=== PATIENT | female | born 1940 | race Caucasian/White ===

== ENCOUNTER 2020-08-01 07:46 | Outpatient (CLI) | payer MEDICARE, SELFPAY ==
--- NOTE | ~2020-08-01 | DEXA_ITS ---
Bone Density Report Name: Lynne Best Age: 80 Sex: Female Ethnicity: White Date of : 1940 Indication: osteopenia; height loss; history of glucocorticoids; hysterectomy; postmenopausal Referring Provider: Marlon Finch Study: Bone densitometry was performed. Exam Date: August 01, 2020 Accession number: [id number] Bone Density: Region BMD T-score Z-score Classification AP Spine (L1, L2, L3) 0.780 -2.2 0.5 Osteopenia Femoral Neck (Left) 0.697 -1.4 1.0 Osteopenia Total Hip (Left) 0.735 -1.7 0.5 Osteopenia Total Hip Bilateral Avg 0.738 -1.7 0.5 Osteopenia Femoral Neck (Right) 0.623 -2.0 0.4 Osteopenia Total Hip (Right) 0.739 -1.7 0.5 Osteopenia World Health Organization criteria for BMD impression classify patients as: Normal (T-score at or above -1.0), Osteopenia (T-score between -1.0 and -2.5), or Osteoporosis (T-score at or below -2.5). 10-year Fracture Risk(1): Major Osteoporotic Fracture 24% Hip Fracture 8.7% Reported Risk Factors: [place] (), Neck BMD=0.623, BMI=25.1, glucocorticoids (1) FRAX(R) Version 3.08. Fracture probability calculated for an untreated patient. Fracture probability may be lower if the patient has received treatment. Previous Exams: Region Exam Age BMD T-score BMD Change BMD Change Date g/cm2 vs Baseline vs Previous AP Spine(L1, L2, L3) 08/01/2020 80 0.780 -2.2 -0.294(-27.4%) 0.006(0.8%) 11/30/2017 77 0.774 -2.2 -0.300(-28.0%) -0.028(-3.5%)# 11/26/2015 75 0.801 -2.0 -0.272(-25.4%) -0.206(-20.4%) 04/13/2009 69 1.007 -0.1 -0.067(-6.2%)* -0.067(-6.2%)* 07/09/2006 66 1.074 0.5 Total Hip(Left) 08/01/2020 80 0.735 -1.7 -0.116(-13.6%) -0.058(-7.3%)* 11/30/2017 77 0.793 -1.2 -0.058(-6.9%)# -0.019(-2.3%)# 11/26/2015 75 0.812 -1.1 -0.039(-4.6%)# -0.060(-6.9%)# 04/13/2009 69 0.871 -0.6 0.020(2.4%) 0.020(2.4%) 07/09/2006 66 0.851 -0.7 Total Hip(Right) 08/01/2020 80 0.739 -1.7 -0.069(-8.6%)# -0.048(-6.2%)* 11/30/2017 77 0.787 -1.3 -0.021(-2.6%)# -0.016(-2.0%)# 11/26/2015 75 0.803 -1.1 -0.005(-0.6%)# -0.039(-4.6%)# 04/13/2009 69 0.842 -0.8 0.034(4.2%)* 0.034(4.2%)* 07/09/2006 66 0.808 -1.1 *Denotes significance at 95% confidence level, LSC for AP Spine = 0.022 g/cm2, LSC for Total Hip = 0.027 g/cm2 Clinical Information Provided by Patient: Has taken Glucocorticoids Has used the following medications: Calcium Has the following medical conditions: Hysterectom
== END 2020-08-01 07:47 | disposition home or self-care (01) ==
PROVIDERS: PCP Family Medicine; Visit Provider Family Medicine
DX: Z78.0 Asymptomatic menopausal state (principal); M85.89 Other specified disorders of bone density and structure, multiple sites
CPT/HCPCS: 77080

== ENCOUNTER → 2021-02-06 11:04 | Outpatient (CLI) | payer MEDICARE, SELFPAY ==
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
== END ==
PROVIDERS: PCP Family Medicine; Visit Provider Nurse Practitioner Family
DX: M53.3 Sacrococcygeal disorders, not elsewhere classified (principal); M16.0 Bilateral primary osteoarthritis of hip
CPT/HCPCS: 72202

== ENCOUNTER → 2021-02-18 10:58 | Outpatient (CLI) | payer MEDICARE, SELFPAY ==
--- NOTE | ~2021-02-18 | MR_ITS ---
EXAMINATION: MR lumbar spine wo con DATE: 02/18/2021 11:43 INDICATION: Other low back pain. TECHNIQUE: Magnetic resonance imaging (MRI) of the lumbar spine was performed without intravenous con trast. Sequences included sagittal T2-weighted FSE, sagittal STIR FSE, sagittal T1-weighted FSE, and axial T2-weighted FSE. COMPARISON: Lumbar spine MRI 07/21/2012 FINDINGS: There is 9 degrees dextrocurvature of lumbar spine. There is 3 mm anterolisthesis of L4 on L5. There are changes of anterior and posterior fusion procedures at L4-L5 with interbody devices and pedicle screws. Vertebral body heights are normal. There is mildly decreased disc height at L1-L2 an d L2-L3 and moderately decreased disc height at L3-L4 with endplate remodeling. The distal spinal cor d signal intensity is normal. The conus medullaris is at T12-L1. There is cortical thinning of left k idney. The following disc levels are specifically discussed: L1-L2: The disc does not extend beyond the endplate margin. There is mild bilateral facet joint osteo arthritis. There is no neural foraminal stenosis. There is no central canal stenosis. L2-L3: The disc is bulging. There is moderate bilateral facet joint osteoarthritis. There is mild mack ateral neural foraminal stenosis. There is mild central canal stenosis. L3-L4: The disc is bulging and has an annular fissure. There is severe bilateral facet joint osteoart hritis. There is moderate bilateral neural foraminal stenosis. There is mild central canal stenosis. L4-L5: There is mild bilateral facet joint hypertrophy. There is mild right neural foraminal stenosis . There is no central canal stenosis. L5-S1: The disc does not extend beyond the endplate margin. There is severe bilateral facet joint ost eoarthritis. There is mild bilateral neural foraminal stenosis. There is no central canal stenosis. IMPRESSION: 1. Moderate lumbar spondylosis, worsened at L3-L4 from 07/21/2012. 2. Anterior and posterior fusion procedures at L4-L5. Reviewed, dictated and finalized at location A. ERMAKER MECHANIC
== END ==
PROVIDERS: PCP Family Medicine; Visit Provider Nurse Practitioner Family
DX: M47.817 Spondylosis without myelopathy or radiculopathy, lumbosacral region (principal); M48.07 Spinal stenosis, lumbosacral region; Z98.1 Arthrodesis status
CPT/HCPCS: 72148

== ENCOUNTER 2021-05-29 14:29 | Outpatient (CLI) | payer MEDICARE, SELFPAY ==
--- NOTE | ~2021-05-29 | CT_ITS ---
EXAMINATION: CT brain wo con DATE: 05/29/2021 14:59 INDICATION: Transient ischemic attack, possible stroke. Memory loss. TECHNIQUE: Computed tomography (CT) of the head was performed without intravenous contrast. The mA wa s adjusted according to patient size. Iterative reconstruction technique was employed. Exam dose: 60 5.33 mGy-cm total exam DLP. COMPARISON: 11/10/2017 CT brain FINDINGS: Vertebral, basilar and carotid siphon and supraclinoid internal carotid artery calcificatio ns. There is nonspecific diminished attenuation cerebral white matter, likely due to chronic small vessel ischemic changes. Subacute or old focal left frontal infarct, not present on 11/10/2017. No intracranial mass lesion or hemorrhage or cerebrovascular accident. No midline shift or mass effec t effect. There is mild to moderate cerebral and cerebellar volume loss not inconsistent with patient age. Included paranasal sinuses and the mastoid air cells are normally developed and aerated. No fracture or bone destruction of the cranial vault. IMPRESSION: Subacute or chronic left frontal infarct, not present on 11/10/2017 Cerebral atherosclerosis and chronic small vessel ischemic changes of cerebral white matter Reviewed, dictated and finalized at Location A. Reviewed, dictated and finalized at location A.
== END 2021-05-29 14:30 | disposition home or self-care (01) ==
PROVIDERS: PCP Family Medicine; Visit Provider Nurse Practitioner Family
DX: Z86.73 Personal history of transient ischemic attack (TIA), and cerebral infarction without residual deficits (principal); I67.2 Cerebral atherosclerosis
CPT/HCPCS: 70450

== ENCOUNTER 2021-06-11 11:34 | Outpatient (CLI) | payer MEDICARE, SELFPAY ==
--- NOTE | ~2021-06-11 | US_ITS ---
EXAMINATION: US carotid duplex BI DATE: 06/11/2021 12:21 INDICATION: Left frontal lobe cerebral infarction. TECHNIQUE: Grayscale, color Doppler, and pulsed Doppler images of the cervical carotid arteries were obtained. The degree of vessel stenosis is placed in one of the following categories: normal, <50%, 5 0-69%, >=70% but less than near-occlusion, near-occlusion, or total occlusion. Note that percent sten osis relative to normal distal artery lumen diameter is indirectly measured from velocity measurement s as described by Vikash, et al. Radiology 2003; 229:340-346. COMPARISON: Ultrasound 12/01/2017 FINDINGS: RIGHT: The right common carotid artery (CCA) peak systolic velocity (PSV) is 127 cm/s. The right internal ca rotid artery (ICA) PSV is 78 cm/s. The right ICA end-diastolic velocity (EDV) is 24 cm/s. The right I CA/CCA PSV ratio is 0.6. Grayscale and color Doppler images yield an estimate of <50% diameter reduct ion from plaque in the ICA. There is antegrade flow in the right vertebral artery. LEFT: The left CCA PSV is 108 cm/s. The left ICA PSV is 127 cm/s. The left ICA EDV is 28 cm/s. The left ICA /CCA PSV ratio is 1.2. Grayscale and color Doppler images yield an estimate of <50% diameter reductio n from plaque in the ICA. There is antegrade flow in the left vertebral artery. IMPRESSION: 1. <50% stenosis in the right internal carotid artery. 2. <50% stenosis in the left internal carotid artery. Reviewed, dictated and finalized at location A.
== END 2021-06-11 11:35 | disposition home or self-care (01) ==
PROVIDERS: PCP Family Medicine; Visit Provider Nurse Practitioner Family
DX: I63.9 Cerebral infarction, unspecified (principal); I65.23 Occlusion and stenosis of bilateral carotid arteries
CPT/HCPCS: 93880

== ENCOUNTER 2021-12-25 11:09 | Outpatient (RCR) | payer MEDICARE, SELFPAY ==
--- NOTE | 2021-12-25 11:58 | OTOPEVDC ---
Assessment and note entered by Ashlee Mora, OTR/L Thank you for referring Lynne Best to [facility].? An evaluation has been completed. No further treatment is needed. Evaluation Information Assessment Status Evaluation Onset 2020 Subjective Information Patient has a history of CVA in medical chart although patient reports it was undetermined if she had a CVA previously or not. Patient presents to outpatient OT today with complaints of hands occasionally being shaky when eating or handwriting. Patient reports the shakiness began last year sometime. Reported Pain Level Pain Score 0: Self Report Assessment OT Clinical Summary Lynne is a 81 year old R hand dominant female presenting to Outpatient OT with complaint of occasional hand tremors with eating and handwriting. Patient reports this does not bother her much and does not impact daily life. Patient reports is independent with ADLs/IADLs and fine motor tasks such as sowing. 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 There is no skilled OT indicated at this time, patient is agreeable to discharge. Thank you for the referral. Plan of Care OT Services Indicated No
== END 2021-12-26 16:36 | disposition home or self-care (01) ==
LOC: ANHGOSHOT 11:09
PROVIDERS: PCP Family Medicine; Visit Provider Nurse Practitioner Family
DX: I69.30 Unspecified sequelae of cerebral infarction (principal); G25.2 Other specified forms of tremor; R29.898 Other symptoms and signs involving the musculoskeletal system
CPT/HCPCS: 97165

== ENCOUNTER → 2022-07-03 09:48 | Outpatient (CLI) | payer MEDICARE, SELFPAY ==
--- NOTE | ~2022-07-03 | XR_ITS ---
EXAMINATION: XR_CERV2-3V_CR DATE: 07/03/2022 09:59 INDICATION: Neck pain. TECHNIQUE: 3 views of cervical spine were obtained. COMPARISON: None. FINDINGS: There is 2 mm anterolisthesis of C4 on C5 and 2 mm retrolisthesis of C5 on C6. There is 6 d egrees dextrocurvature of cervicothoracic spine. Vertebral body heights are normal. There is mildly d ecreased disc height at C4-C5 and severely decreased disc height at C5-C6. There is multilevel uncove rtebral joint osteoarthritis, severe on the left at C4-C5 and bilaterally at C5-C6. There is multilev el facet joint osteoarthritis, severe at C7-T1 and on the right at C4-C5. There is mild central canal stenosis at C4-C5 and C5-C6. No prevertebral soft tissue swelling. IMPRESSION: 1. Severe cervical spondylosis. Reviewed, dictated and finalized at location A.
== END ==
PROVIDERS: PCP Family Medicine; Visit Provider Family Medicine
DX: M47.812 Spondylosis without myelopathy or radiculopathy, cervical region (principal)
CPT/HCPCS: 72040

== ENCOUNTER 2023-08-27 12:36 | Outpatient (CLI) | payer MEDICARE, SELFPAY ==
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
== END 2023-08-27 12:37 | disposition home or self-care (01) ==
PROVIDERS: PCP Family Medicine; Visit Provider Nurse Practitioner
DX: Z78.0 Asymptomatic menopausal state (principal); M85.89 Other specified disorders of bone density and structure, multiple sites
CPT/HCPCS: 77080

== ENCOUNTER 2024-07-19 10:28 | Outpatient (CLI) | payer MEDICARE, SELFPAY ==
--- NOTE | ~2024-07-19 | US_ITS ---
EXAMINATION: US thyroid DATE: 07/19/2024 10:44 INDICATION: Disorder of thyroid TECHNIQUE: Multiple ultrasound images of the thyroid were obtained. COMPARISON: None. FINDINGS: The right thyroid lobe measures 6.0 x 3.4 x 2.4 cm. Within the right lobe of the thyroid gland is a 33 x 27 x 19 mm nodule: Composition -solid or almost completely solid (2) Echogenicity -hyperechoic or isoechoic (1) Shape - wider than tall Margin - lobulated or irregular (2). Echogenic foci - none. = TR 4, moderately suspicious FNA if greater than or equal to 1.5 cm. Follow if greater than or equal to 1 cm. A bulky calcification is also identified within the right lobe of the thyroid gland measuring 6 mm in greatest dimension. The left thyroid lobe measures 4.7 x 1.2 x 1.7 cm. The isthmus measures 0.5cm in anterior to posterior dimension. There is heterogeneous echotexture and echogenicity throughout the remainder of the thyroid gland. No additional discrete nodules identified. Increased vascular flow is present bilaterally. IMPRESSION: Moderately suspicious nodule within the right lobe of the thyroid gland for which FNA is recommended. Reviewed, dictated and finalized at location A. IMPRESSION: Moderately suspicious nodule within the right lobe of the thyroid gland for whi ch FNA is recommended.
== END 2024-07-19 10:29 | disposition home or self-care (01) ==
PROVIDERS: PCP Physician Assistant; Visit Provider Physician Assistant
DX: E04.1 Nontoxic single thyroid nodule (principal)
CPT/HCPCS: 76536

== ENCOUNTER 2024-09-06 12:08 | Outpatient (CLI) | payer MEDICARE, SELFPAY ==
--- NOTE | ~2024-09-06 | US_ITS ---
EXAMINATION: US FNA w image guidance DATE: 09/06/2024 13:50 INDICATION: Thyroid nodule TECHNIQUE: A time-out was performed to verify the patient's name, date of , and procedure to be performed . The procedure and its benefits and risks were discussed with the patient. Risks specifically discus sed included bleeding and infection. The patient understood the risks and agreed to proceed. The neck was prepped and draped in the usual sterile manner. 2 mL 1% lidocaine was used for local anesthesia . 7 passes were made with a 25G needle into the lesion. Appropriate needle location was documented with continuous sonographic guidance. A sterile bandage was applied. There were no immediate compli cations. FINDINGS: Grayscale ultrasound images demonstrate biopsy needles advanced into a 2.7 cm TI RADS 4 right thyroid nodule. IMPRESSION: 1. Successful ultrasound-guided fine needle aspiration of a 2.7 cm TI RADS 4 right thyroid nodule. Reviewed, dictated and finalized at location A. IMPRESSION: 1. Successful ultrasound-guided fine needle aspiration of a 2.7 cm TI RADS 4 r ight thyroid nodule.
--- OUTSIDE RECORDS SUMMARY | 2024-09-06 12:13 | XMS_ITS | Referral Summary ---
Author Organization [facility] [place] [address] Address [address] [place] [address] Care Team Providers Care Lead Relay Tester Name Role Phone Marlon Finch MD Primary Care Provider Allergies Active Allergy Reactions Criticality Noted Date Comments Latex Blisters High Medications losartan (COZAAR) 100 mg tablet take 1 tablet (100MG) by oral route every day 90 3 3 Active calcium-magnesi um-zinc 333-133-5 mg tablet Take 1 tablet by mouth daily Active omeprazole (PriLOSEC) 20 mg capsule Take 1 capsule (20 mg total) by mouth daily Active pravastatin (PRAVACHOL) 20 mg tablet 1 tablet (20 mg total) daily Active donepezil (ARICEPT) 10 mg tablet Take 1 tablet (10 mg total) by mouth nightly 90 tablet 3 9 Active Additional Information Patient taking differently: 5 mgoral Nightly, Reported on 05/27/2024 multivitamin capsule Take 1 capsule by mouth daily Active amLODIPine (NORVASC) 5 mg tablet Take 1 tablet (5 mg total) by mouth daily Active vitamin B complex capsule Take 1 capsule by mouth daily Active HYDROCHLOROTHIA ZIDE ORAL Take 25 mg by mouth daily 1 Active glucosamine HCl/chondroitin tello (glucosamine-ch ondroitin) 750-600 mg tablet,chewable Take by mouth Active vibegron (GEMTESA ORAL) Take by mouth A ctive Eliquis 5 mg tablet TAKE 1 TABLET BY MOUTH TWICE DAILY 180 tablet 3 5 Active Active Problems Problem Noted Date Diagnosed Date Low back pain 06/25/2017 Osteoarthritis of left hip 06/24/2017 Arthralgia of hip 02/16/2017 Atrial fibrillation ([facility]) [I48.91] 7 Social History Tobacco Use Types Packs/Day Years Used Date Smoking Tobacco: Never Smokeless Tobacco: Never Tobacco Cessation:Counseling Given: Not Answered Alcohol Use Standard Drinks/Week Comments Yes 0 (1 standard drink = 0.6 oz pur e alcohol) Comments Unknown Sex and Gender Information Value Date Recorded Sex Assigned at Not on file 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 Gender Identity Not on file Sexual Orientation Not on file Last Filed Vital Signs Vital Sign Reading Time Taken Comments Blood Pressure 134/82 05/27/2024 9:31 AM CDT Pulse 77 05/27/2024 9:31 AM CDT Temperature - - Respiratory Rate 16 09/10/2016 10:16 AM CDT Oxygen Saturation 96% 05/27/2024 9:31 AM CDT Inhaled Oxygen Concentration - - Weight 67.6 kg (149 lb) 05/27/2024 9:31 AM CDT Height 160 cm (5' 3) 05/27/2024 9:31 AM CDT Body Mass Index 26.39 05/27/2024 9:31 AM CDT Plan of Treatment Not on file Insurance [facility] MEDICARE ADVANTAGE [employer] MEDICARE [facility] MEDICARE ADVANTAGE [facility] MEDICARE Care Teams Lead Relay Tester Relationship Specialty Start Date End Date Marlon Finch MD [address] [address] PCP - General 04/28/17
--- OUTSIDE RECORDS SUMMARY | 2024-09-06 12:13 | XMS_ITS | Encounter Summary ---
Author Organization [facility] Facility Care Team Providers Care Deli Cutter Slicer Name Role Phone Bruno Donaldson DO Primary Care Provider [phone]- [phone] Bruno Donaldson DO Primary Care Provider [phone]- [phone] Marlon Finch MD Primary Care Provider Marlon Finch MD Primary Care Provider Bruno Donaldson DO Primary Care Provider [phone]- [phone] Marlon Finch MD Primary Care Provider Encounter Details Date Type Department Care Team (Latest Contact Info) Description 11/27/2014 Orders Only [facility] ProviderJacquie MD [address] [place] [address] Social History Tobacco Use Types Packs/Day Years Used Date Smoking Tobacco: Never Alcohol Use Standard Drinks/Week Comments Yes 0 (1 standard drink = 0.6 oz pur e alcohol) Comments Unknown Sex and Gender Information Value Date Recorded Sex Assigned at Not on file 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 us Historical Provider Final Res ult documented in this encounter Visit Diagnoses Not on filedocumented in this encounter Care Teams Deli Cutter Slicer Relationship Specialty Start Date End Date Bruno Donaldson DO PCP - General 05/30/16 09/09/16 Bruno Donaldson DO PCP - General 10/31/10 05/29/16 Marlon Finch MD [address] [place] [address] PCP - General Family Medicine 09/10/16 02/16/17 Marlon Finch MD [address] [place] [address] PCP - General 02/17/17 02/17/17 Bruno Donaldson DO PCP - General 02/18/17 04/27/17 Marlon Finch MD [address] [place] [address] PCP - General 04/28/17 documented as of this encounter
--- OUTSIDE RECORDS SUMMARY | 2024-09-06 12:13 | XMS_ITS | Encounter Summary ---
Author Organization [facility] Address [address] [place] [address] Care Team Providers Care Radio Intelligence Operator Name Role Phone Marlon Finch MD Primary Care Provider Encounter Details Date Type Department Care Team (Late st Contact Info) Description 12/01/2017 Orders Only [facility] [place] [facility] Information Management [address] [place] [id number] Scanning, Provider Social History Tobacco Use Types Packs/Day Years Used Date Smoking Tobacco: Never Smokeless Tobacco: Never Alcohol Use Standard Drinks/Week Comments Yes 0 (1 standard drink = 0.6 oz pur e alcohol) Comments Unknown Sex and Gender Information Value Date Recorded Sex Assigned at Not on file 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 Gender Identity Not on file Sexual Orientation Not on file documented as of this encounter Plan of Treatment Not on file documented as of this encounter Procedures Procedure Name Priority Date/Time Associated Diagnosis Comments CARDIOLOGY DOCUMENT SCAN 12/01/2017 documented in this encounter Results * Cardiology Document Scan (12/01/2017) Anatomical Region Laterality Modality Other us Provider Scanning CV CARDIAC SERVICES PROCEDURES Final Result documented in this encounter Visit Diagnoses Not on filedocumented in this encounter Care Teams Radio Intelligence Operator Relationship Specialty Start Date End Date Marlon Finch MD [address] [place] [address] PCP - General 04/28/17 documented as of this encounter
--- OUTSIDE RECORDS SUMMARY | 2024-09-06 12:13 | XMS_ITS | Encounter Summary ---
Author Organization [facility] Address [address] [place] [address] Care Team Providers Care Welding Machine Operator Helper Gas Name Role Phone Unavailable Primary Care Provider Unavailabl e Encounter Details Date Type Department Care Team (Late st Contact Info) Description 08/28/2023 Results Notification [facility] Family [facility] - [place] [address] [place], [place] [id number] Janiya Zhao NP [address] [place], [place] [id number] Social History Tobacco Use Types Packs/Day Years Used Date Smoking Tobacco: Never Assessed Comments Unknown Sex and Gender Information Value Date Recorded Sex Assigned at Not on file Legal Sex Female 4:06 PM CDT Gender Identity Not on file Sexual Orientation Not on file documented as of this encounter Progress Notes * Reanna Cole MA - 08/31/2023 9:53 AM CDT 08/30 vm not set up and no answer. This isn't Janiya's patient. * Reanna Cole MA - 08/28/2023 8:31 AM CDT 08/27 vm not set up yet. * Janiya Zhao NP - 08/28/2023 8:10 AM CDT I have not seen this pt before. Maybe call and see if they are planning to establish. * Reanna Cole MA - 08/28/2023 7:41 AM CDT Bone Density Report 08/27/23 Ordering Physician: Hola Mejia PA-C Impression: The patient hs low bone mass, based on the Total Spine T-score. The patient has risk factors, including previous fracture, history of glucocorticoid therapy. No significant bone loss was observed. F/u exam in 2 yr or sooner if medically necessary, to reassess this patient's status. Report in Janiya's folder. documented in this encounter Plan of Treatment Not on file documented as of this encounter Visit Diagnoses Not on filedocumented in this encounter
--- OUTSIDE RECORDS SUMMARY | 2024-09-06 12:13 | XMS_ITS | Clinical Summary ---
Author Organization [facility] Address [address] [place] [address] Care Team Providers Care Registered Nurse Surgical Services Name Role Phone Unavailable Primary Care Provider Unavailabl e Social History Tobacco Use Types Packs/Day Years Used Date Smoking Tobacco: Never Assessed Comments Unknown Sex and Gender Information Value Date Recorded Sex Assigned at Not on file Legal Sex Female 4:06 PM CDT Gender Identity Not on file Sexual Orientation Not on file Plan of Treatment Health Maintenance Due Date Last Done Comments DTaP, Tdap and Td Vaccines ( 1 - Tdap) 1959 Pneumococcal Vaccine: 50+ Ye ars (1 of 1 - PCV) 02/13/1988 Zoster Vaccines (1 of 2) 02/13/1988 RSV Immunization or 60+ Years (1 - 1-dose 75+ series) 2013 COVID-19 Vaccine (2023-2 5 season) 2023 Meningococcal B Vaccine Aged Out No l onger eligible based on patient's age to complete this topic Meningococcal Vaccine Aged Out No gorge svetlana eligible based on patient's age to complete this topic RSV Immunizations Under 20 Months Aged Out No longer eligible based on patient's age to complete this topic
--- OUTSIDE RECORDS SUMMARY | 2024-09-06 12:13 | XMS_ITS | Clinical Summary ---
Author Organization [facility] [place] [address] Address [address] [place] [address] Care Team Providers Care Financial Foundations Associate Name Role Phone Marlon Finch MD Primary [...] 06/24/2017 Arthralgia of hip 02/16/2017 Atrial fibrillation (CMS/HCC) [I48.91] 7 Surgical History Surgery Date Site/Laterality Comments FL FLUORO GUIDED INJECTION HIP LEFT 08/17/2017 Left Medical History Medical History Date Comments Hypertension Hypertension Family History Medical History Relation Name Comments Stroke Brother 2 2 Stroke; Lung cancer Brother 3 Cancer, lung; C ause of : Cancer, lung Stroke Mother Stroke; Cause o f : Stroke Relation Name Status Comments Brother 1 Brother 2 2 Alive Brother 3 Mother Social History Tobacco Use Types Packs/Day Years Used Date Smoking Tobacco: Never Smokeless Tobacco: Never Tobacco Cessation:Counseling Given: Not Answered Alcohol Use Standard Drinks/Week Comments Yes 0 (1 standard drink = 0.6 oz pur e alcohol) Comments Unknown Sex and Gender Information Value Date Recorded Sex Assigned at Not on file Legal Sex Female 3:40 PM [employer] Gender Identity Not on file Sexual Orientation Not on file Obstetrics History Last Filed Vital Signs Vital Sign Reading [...] 05/27/2024 9:31 AM CDT Plan of Treatment Health Maintenance Due Date Last Done Comments Depression Screening 1940 Fall Risk Assessment 1940 Osteoporosis Screening-Bone Density Scan 1940 DTaP/Tdap/Td Vaccine (1 - Tdap) 1949 Hepatitis B Screening 02/13/1956 Pneumococcal vaccine 65+ (1 of 1 - PCV) 02/13/1988 Zoster Vaccine (1 of 2) 02/13/1988 Well Visit 65+ 2003 Influenza Vaccine (Season Ended) 2024 11/22/2017, 12/22/2016, 11/29/2015, Additional history exists Insurance [facility] MEDICARE ADVANTAGE [facility] MED[facility] Address: [facility] [id number] MEDICARE [facility] MEDICARE ADVANTAGE [facility] MEDICARE Address: [address] [address] [place] [address] [employer] MEDICARE Care Teams Financial Foundations Associate Relationship Specialty Start Date End Date Marlon Finch MD [address] [facility] [address] [place] [address] PCP - General 04/28/17
--- NOTE | 2024-09-06 13:46 | CY_PTH ---
PATIENT: Lynne Best LOC: [facility] U#:[id number] AGE/SX: 84/F ROOM: RE09/06/[address]: Hola Mejia PA-C : 1940 BED: DIS: 09/06/2024 SPEC #: [id number] RECD: 09/06/24 13:48 STATUS: BECCA REQ #: [id number] LAURITA: 09/06/24 13:[address]: Hola Mejia DEPT: [facility] Cytology RECD BY: Estrella wEing MLT, ([facility]) Tissues: A - FNA Thyroid Procedures: PAX-8 Hematoxylin and Eosin Stain Cell Block Fine Needle Aspiration Evaluation CD3 Fna Additional Pass Synaptoshysin Chromogranin Stain Fine Needle Aspiration Pathologist CD 20
== END 2024-09-06 12:09 | disposition home or self-care (01) ==
PROVIDERS: PCP Physician Assistant; Visit Provider Physician Assistant
DX: E04.1 Nontoxic single thyroid nodule (principal)
CPT/HCPCS: 10005; 88172; 88173; 88177; 88305; 88332; 88342